=== PATIENT | male | born 1965 | race Two or more races ===

== ENCOUNTER 2019-02-03 13:01 | Emergency (ER) | payer MEDICARE, MEDICAID ==
[~2019-02-03] VITALS: Ht 157.5 cm; Wt 74.8 kg
[2019-02-03 14:16] LABS: Basophils # (auto) 0.1 uL; Basophils % (auto) 0.9 % (0.0-2.0); Eosinophils # (auto) 0.1 uL; Eosinophils % (auto) 1.7 % (0.0-7.0); Hematocrit 46.3 % (41.0-53.0); Hemoglobin 15.3 g/dL (13.5-17.5); Lymphocytes # (auto) 2.5 uL; Lymphocytes % (auto) 34.9 % (10.0-50.0); Mean Corpuscular Hemoglobin 28.3 pg (28.0-32.0); Mean Corpuscular Volume 85.9 fL (80.0-100.0); Monocytes # (auto) 0.6 uL; Monocytes % (auto) 7.9 % (0.0-12.0); Neutrophils # (auto) 3.8 uL; Neutrophils % (auto) 54.6 % (37.0-80.0); Nucleated Red Blood Cells % 0.1 %; Platelet Count (auto) 198 10^3/uL (140-450); Red Blood Cells 5.39 10^6/uL (4.5-5.90); Red Cell Distribution Width 14.2 % (11.8-14.3)
[2019-02-03 14:40] LABS: Potassium 4.4 mmol/L (3.5-5.1)
[2019-02-03 14:44] LABS: Calcium 8.9 mg/dL (8.5-10.1)
[2019-02-03 14:50] LABS: Bilirubin, Total 0.4 mg/dL (0.2-1.0); Total Protein 8.4 g/dL (6.4-8.2)
[2019-02-03 17:15] VITALS: BP 150/106
== END 2019-02-03 17:36 | disposition home or self-care (01) ==
LOC: ER 13:01
DX: R42 Dizziness and giddiness (principal); R51 Headache; M54.2 Cervicalgia; E11.9 Type 2 diabetes mellitus without complications; E78.5 Hyperlipidemia, unspecified; I25.2 Old myocardial infarction; Z98.61 Coronary angioplasty status; Z86.73 Personal history of transient ischemic attack (TIA), and cerebral infarction without residual deficits
CPT/HCPCS: 36415; 70450; 80053; 85025; 93005

== ENCOUNTER 2025-06-27 23:51 | Emergency (ER) | payer OTHER, MEDICAID ==
[~2025-06-27] VITALS: Ht 162.6 cm; Wt 63.6 kg
--- NOTE | 2025-06-28 02:01 | ED.PDOC ---
History of Present Illness HPI Comments HPI: This is a 59 year-old male who presents to the ED via wheelchair with a chief complaint of ETOH intoxification. Pt reports he was brought here by his after getting drunk at a restaurant. Pt is a poor historian. Pt has no further complaints or modifiers at this time. Pt otherwise denies chest pain, LOC, N/V/D, SOB, cough, fever, or chills. Patient denies any fall or trauma or injuries. Patient was at the restaurant with his . Past Medical History: CVA, DM, High Lipids, HTN, [place] Past Surgical History: PTCA Social History: Denies ETOH, smoking, and drug use. Medications: Unknown Allergies: None HPI: Poor Historian. REVIEW OF SYSTEMS: CONSTITUTIONAL: Denies acute: fever, diaphoresis, chills, HEAD: Denies acute: headache, photophobia Eyes: Denies acute: Double vision, vision loss, eye pain, eye discharge. EARS: Denies acute: tinnitus, hearing loss, ear discharge, ear pain, THROAT: Denies acute: sore throat, swelling, difficulty swallowing , pain with swallowing, change in voice. NECK: Denies acute: neck pain, neck swelling, stiff neck. HEART: Denies acute : chest pain, palpitations, LUNGS: Denies acute: SOB, wheezing, cough, hemoptysis ABDOMEN: Denies acute: abdominal pain, Nausea, Vomiting, diarrhea, melena , hematemesis, hematochezia SKIN: Denies acute: rash, redness, lesions, itchiness. EXTREMITIES: Denies acute: calf pain, numbness, tingling, weakness, denies pain in extremity. Denies acute: Low back pain. Neuro: Denies acute: focal neurological deficit, motor or sensory focal neurological deficit, tremors, seizure like activity, confusion, change in mental status, loss of bowel or bladder function, cauda equina like symptoms. : Denies acute: dysuria, hematuria, flank pain, increase in urinary frequency. PSYCH: Denies acute: hallucination, suicidal ideation, homicidal ideation. PHYSICAL EXAM: General: -----no---acute distress, awake and alert. Head: normocephalic, atraumatic. Neck: supple, trachea is midline, no swelling. Throat: Normal phonation. Eyes:, no erythema, no purulent discharge, no proptosis, no icterus. Heart: regular rate, regular rhythm, no significant murmur appreciated. Lungs: no apparent respiratory distress, Able to speak in full sentences. No wheezing, no rhonchi, no crackles. No stridors Clear to auscultation bilaterally. Abdomen: non tender to palpation, non distended, soft, no guarding, no rebound, + bowel sounds. Neuro: Awake, Alert, oriented to name, self, situation, follows commands GCS=15. Speech is normal. Skin: no petechia, no purpura, no cyanosis, non-pale, not jaundice. Lower extremities: --no - Pitting edema no deformity, no focal swelling, no calf TTP. Makes eye contact. moves all four extremities. Face: no apparent facial droop. ED COURSE: DISCLAIMER: This medical document was created using an electronic medical record system with voice recognition software and computerized dictation system. Although this document has been carefully reviewed, there might still be some phonetic and typographical errors. Occasional wrong-word or "sound-alike" substitutions may have occurred due to the inherent limitations of voice recognition software. These areas are purely typographical due to imperfections of the software programs and do not reflect any compromise in the patient's medical care. Please read the chart carefully and recognize, using context, where these substitutions have occurred. Chief Complaint: ETOH Time Seen by MD: 02:00 Reviewed Notes: Nurses Notes, Medications, Allergies Allergies: Coded Allergies: NO KNOWN ALLERGIES (Unverified , 02/03/19) Information Source: Patient Mode of Arrival: EMS Severity: Moderate Timing: Hours Duration: Since onset Prehospital treatment: None Associated signs and symptoms ETOH Intoxification Physical Exam General Appearance: Other (a) HEENT: Other (a) Neck: Other (a) Respiratory: Other (per hpi) Cardiovascular: Other (per hpi) Breast Exam: Deferred Gastrointestinal: Other (per hpi) Genitalia: Other (per hpi) Pelvic: Other (a) Rectal: Other (per hpi) Extremities: Other (per hpi) Musculoskeletal : Apperance: Normal Neurologic: Other (per hpi) Cerebellar Function: Other (a) Reflexes: Other (a) Skin: Other (per hpi) Lymphatic: Other (per hpi) Was a procedure done? Was a procedure done?: No Differential Dx Considerations may include: ETOH Intoxification X-Ray, Labs, Meds, VS Vital Signs Date Time Temp Pulse Resp B/P (MAP) Pulse Ox O2 Delivery O2 Flow Rate FiO2 06/28/25 04:22 79 18 98 Room Air* 0 21 06/28/25 04:22 98.1 79 18 109/68 (82) 98.1 06/28/25 00:00 97.6 107 18 149/83 96 97.6 Lab Test 06/28/25 01:46 Range/Units White Blood Count 7.2 4.4-10.8 10^3/uL Red Blood Count 4.54 4.5-5.90 10^6/uL Hemoglobin 14.2 13.5-17.5 g/dL Hematocrit 41.0 41.0-53.0 % Mean Corpuscular Volume 90.3 80.0-100.0 fL Mean Corpuscular Hemoglobin 31.3 28.0-32.0 pg Mean Corpuscular Hemoglobin Concent 34.6 32.0-36.0 g/dL Red Cell Distribution Width 14.3 11.8-14.3 % Platelet Count 153 140-450 10^3/uL Mean Platelet Volume 9.0 6.9-10.8 fL Neutrophils (%) (Auto) 63.5 37.0-80.0 % Lymphocytes (%) (Auto) 25.3 10.0-50.0 % Monocytes (%) (Auto) 7.5 0.0-12.0 % Eosinophils (%) (Auto) 2.9 0.0-7.0 % Basophils (%) (Auto) 0.8 0.0-2.0 % Neutrophils # (Auto) 4.6 1.6-8.6 10 ^3/uL Lymphocytes # (Auto) 1.8 0.4-5.4 10 ^3/uL Monocytes # (Auto) 0.5 0-1.3 10 ^3/uL Eosinophils # (Auto) 0.2 0-0.8 10 ^3/uL Basophils # (Auto) 0.1 0-0.2 10 ^3/uL Nucleated Red Blood Cells 0.1 % Sodium Level 140 136-145 mmol/L Potassium Level 3.4 L 3.5-5.1 mmol/L Chloride Level 107 98-107 mmol/L Carbon Dioxide Level 21 20-31 mmol/L Anion Gap 12 5-15 Blood Urea Nitrogen < 5 L 9-23 mg/dL Creatinine 0.79 0.700-1.30 mg/dL Glomerular Filtration Rate Calc 104 >90 mL/min BUN/Creatinine Ratio 6.3 L 10.0-20.0 Serum Glucose 163 H 74-106 mg/dL Lactic Acid Level 2.0 0.4-2.0 mmol/L Calcium Level 8.6 L 8.7-10.4 mg/dL Magnesium Level 2.0 1.6-2.6 mg/dL Total Bilirubin 0.3 0.2-1.0 mg/dL Aspartate Amino Transferase (AST) 98 H 13-40 U/L Alanine Aminotransferase (ALT) 38 7-40 U/L Alkaline Phosphatase 224 H 46-116 U/L Troponin I High Sensitivity 21 </=54 ng/L Total Protein 7.6 5.7-8.2 g/dL Albumin 4.4 3.2-4.8 g/dL Plasma/Serum Blood Alcohol 226.1 H <10 mg/dL Current Medications Medications (Trade) Dose Ordered Sig/Bessie Route Start Time Stop Time Status Last Admin Sodium Chloride 1,000 ml @ 1,000 mls/hr Q1H ONCE IV 06/28/25 03:15 06/28/25 04:14 DC 06/28/25 04:21 [place] [address] Ph: [phone] DIAGNOSTIC IMAGING Diagnostic Imaging Report : [id number] Signed PATIENT: PRITI PEARCE ACCT: [id number] UNIT: [id number] : 1965 LOC: ER ROOM / BED: / AGE / SEX: 59 / M ADM STATUS: REG ER SERVICE 6 ORDERING PHYSICIAN: LUCHO SEQUEIRA DO PROCEDURE(s): HWOCT - HEAD WITHOUT CONTRAST REASON: etoh ORDER NUMBER(s): [id number], ACCESSION NUMBER(s): [id number] EXAM: CT HEAD WITHOUT CONTRAST INDICATION: etoh TECHNIQUE: CT of the head without intravenous contrast. Radiation Dose : 1. Head: CT Dose: CTDI volume is 52.24 mGy. Dose-length product is 923.46 mGy*cm The dose indicators for CT are the volume Computed Tomography (CT) Dose Index (CTDIvol) and the Dose Length Product (DLP), and are measured in units of mGy and mGy-cm, respectively. These indicators are not patient dose, but values generated from the CT scanner acquisition factors. The report includes radiation exposure data for exposures received during this examination. COMPARISON: None FINDINGS: Postsurgical change status post left suboccipital craniotomy with subjacent left cerebellar hemispheric encephalomalacia and ex vacuo dilatation of the 4th ventricle. There is no evidence of acute intracranial hemorrhage, extra-axial collection, mass effect, midline shift, herniation or hydrocephalus. The ventricles, sulci and cisterns are otherwise age appropriate. The lockwood-white differentiation is intact. Patchy periventricular and subcortical white matter hypoattenuation is nonspecific but may be related to small vessel ischemic disease. Moderate multifocal hypoattenuation within the left frontoparietal deep white matter and denney radiata consistent with probable sequelae of chronic infarct. The visualized paranasal sinuses and mastoid air cells are clear. The surrounding soft tissues and osseous structures are otherwise unremarkable. IMPRESSION: 1. No acute intracranial abnormality. 2. Postsurgical change status post left suboccipital craniotomy with subjacent left cerebellar hemispheric encephalomalacia. 3. Probable chronic infarcts in the left frontoparietal deep white matter. Radiation optimization: All CT scans at this facility use at least one of these dose optimization techniques: automated exposure control mA and/or kV adjustment per patient size (includes targeted exams where dose is matched to clinical indication) or iterative reconstruction. ATED BY: DAMIEN GUZMAN MD DICTATED DATE/TIME: 06/28/25301 SIGNED BY: DAMIEN GUZMAN MD SIGNED DATE/TIME: 06/28/25301 CC: Time of 1ST Reevaluation: 02:24 Reevaluation 1ST: Unchanged Patient Education/Counseling: Diagnosis, Treatment Family Education/Counseling: No Family Present Medical Screening: No EMC Exist At This Time Comments MDM: patient presented with the above HPI.--alcohol intoxication----workup was initiated. patient was found with the above mentioned diagnosis. the following medications were ordered: please refer to order lists of meds and tests obtained by myself Dr. Sequeira. Patient ED course and VS have been stabilized. Patient has been reassessed in the ED and remained in a stable condition. Pertinent incidental findings were discussed with the patient and/or family. Patient/family voices understanding and is agreeable with plan. Patient has been observed in the ED adequate length of time to insure improvement/stability. Escalation of care considered: Consideration of escalation to observation or admission Patient was given fluids. Repeat alcohol level were ordered. Patient is awaiting his family to come pick him up. No history of fall or trauma or injury. Patient was DISCHARGED home in a stable condition. All the reports of any imaging studies that were ordered by myself were reviewed by myself. SEPSIS Sepsis Screen Date sepsis recognized/suspect: Jun 27, 2025 Time Sepsis recognized/suspect: 2354 Recent Procedure: No On Antibiotic Therapy: No Respiratory Rate >20: No Heart Rate >90: Yes Temp<36 C (96.8 F) or >38.3 C: No SBP <90 or MAP <65 mmHG: No New Acute Mental Status Change: No Is the patient on CPAP, BIPAP,: No Physician Orders Director Product (06/28/25 ) Drug Screen (06/28/25 01:27) Electrocardigram (06/28/25 01:27) Head Without Contrast (06/28/25 01:27) Blood Alcohol (06/28/25 05:51) Vital Signs Date Time Temp Pulse Resp B/P (MAP) Pulse Ox O2 Delivery O2 Flow Rate FiO2 06/28/25 04:22 79 18 98 Room Air* 0 21 06/28/25 04:22 98.1 79 18 109/68 (82) 98.1 06/28/25 00:00 97.6 107 18 149/83 96 97.6 Laboratory Tests Test 06/28/25 01:46 Lactic Acid Level 2.0 mmol/L (0.4-2.0) White Blood Count 7.2 10^3/uL (4.4-10.8) Medications Medications Dose Ordered Sig/Bessie Route Start Time Stop Time Status Last Admin Dose Admin Sodium Chloride 1,000 ml @ 1,000 mls/hr Q1H ONCE IV 06/28/25 03:15 06/28/25 04:14 DC 06/28/25 04:21 Departure 1 Departure Time of Disposition: 05:52 Impression: Primary Impression: Alcohol abuse Disposition: 01 HOME / SELF CARE / HOMELESS Condition: Stable Additional Instructions: Additional instructions: Please read all instructions provided in this packet carefully. You MUST follow-up with your primary care/family doctor in 1 to 2 days. If you are unable to see your primary care/family doctor, please return to our emergency room for re-assessment and re-evaluation in 1 to 2 days. Return to the emergency room here in our facility or to the nearest ER [facility] if your symptoms change or worsen. CONSULTATIONS: you MUST Follow-up for consultation as soon as possible with: -urology and cardiology in 1-2 days. Please call for appointment. You MUST call the consultants office yourself to make an appointment. You may need to arrange that through your insurance and/or your primary/family doctor. If you are unable to see the procurement consultant in 1 to 2 days, you must return to our emergency room (or any other ER of your choice) for re-assessment and re- evaluation. Adequate fluid hydration. Although you have been discharged from the Emergency Department, this does not mean that you have a "clean bill of health". No definitive diagnosis for your symptoms has been made today. It is possible that you are in the process of developing a serious illness. This is why you must return to the ED without fail if any new or worsening symptoms develop. Seek help regarding your alcohol abuse. Patient must be discharged in the care of his family members. He said he called his family members to pick him up. Below is a copy of your radiological report for follow up: [place] [address] Ph: [phone] DIAGNOSTIC IMAGING Diagnostic Imaging Report : [id number] Signed PATIENT: PRITI PEARCE ACCT: [id number] UNIT: [id number] : 1965 LOC: ER ROOM / BED: / AGE / SEX: 59 / M ADM STATUS: REG ER SERVICE 0127 ORDERING PHYSICIAN: LUCHO SEQUEIRA DO PROCEDURE(s): HWOCT - HEAD WITHOUT CONTRAST REASON: etoh ORDER NUMBER(s): [id number], ACCESSION NUMBER(s): [id number] EXAM: CT HEAD WITHOUT CONTRAST INDICATION: etoh TECHNIQUE: CT of the head without intravenous contrast. Radiation Dose : 1. Head: CT Dose: CTDI volume is 52.24 mGy. Dose-length product is 923.46 mGy*cm The dose indicators for CT are the volume Computed Tomography (CT) Dose Index (CTDIvol) and the Dose Length Product (DLP), and are measured in units of mGy and mGy-cm, respectively. These indicators are not patient dose, but values generated from the CT scanner acquisition factors. The report includes radiation exposure data for exposures received during this examination. COMPARISON: None FINDINGS: Postsurgical change status post left suboccipital craniotomy with subjacent left cerebellar hemispheric encephalomalacia and ex vacuo dilatation of the 4th ventricle. There is no evidence of acute intracranial hemorrhage, extra-axial collection, mass effect, midline shift, herniation or hydrocephalus. The ventricles, sulci and cisterns are otherwise age appropriate. The lockwood-white differentiation is intact. Patchy periventricular and subcortical white matter hypoattenuation is nonspecific but may be related to small vessel ischemic disease. Moderate multifocal hypoattenuation within the left frontoparietal deep white matter and denney radiata consistent with probable sequelae of chronic infarct. The visualized paranasal sinuses and mastoid air cells are clear. The surrounding soft tissues and osseous structures are otherwise unremarkable. IMPRESSION: 1. No acute intracranial abnormality. 2. Postsurgical change status post left suboccipital craniotomy with subjacent left cerebellar hemispheric encephalomalacia. 3. Probable chronic infarcts in the left frontoparietal deep white matter. Radiation optimization: All CT scans at this facility use at least one of these dose optimization techniques: automated exposure control mA and/or kV adjustment per patient size (includes targeted exams where dose is matched to clinical indication) or iterative reconstruction. ATED BY: DAMIEN GUZMAN MD DICTATED DATE/TIME: 06/28/25301 SIGNED BY: DAMIEN GUZMAN MD SIGNED DATE/TIME: 06/28/25301 CC: Discharged With: Self, Spouse Critical Care Note Critical Care Time?: No I personally scribed for LUCHO SEQUEIRA DO ([email or web address]) on 06/28/25 at 02:01. Electronically submitted by Marianela Mcdaniel ([facility]). I personally scribed for HUALUCHO Vidal DO (DVFARMI) on 06/28/25 at 02:04. Electronically submitted by Marianela Mcdaniel ([facility]). I personally scribed for LUCHO SEQUEIRA Vidal DO (DVFARMI) on 06/28/25 at 03:12. Electronically submitted by Marianela Mcdaniel ([facility]). I personally scribed for HUALUCHO Vidal DO (DVFARMI) on 06/28/25 at 03:38. Electronically submitted by Marianela Mcdaniel ([email or web address]). I personally scribed for HUALUCHO Vidal DO (DVFARMI) on 06/28/25 at 03:42. Electronically submitted by Marianela Mcdaniel ([email or web address]). I personally scribed for HUALUCHO Vidal DO (DVFARMI) on 06/28/25 at 03:49. Electronically submitted by Marianela Mcdaniel ([facility]). HUALUCHO HOANG DO Jun 28, 2025 02:01
[2025-06-28 02:03] LABS: Hematocrit 41.0 % (41.0-53.0); Hemoglobin 14.2 g/dL (13.5-17.5); Mean Corpuscular Hemoglobin 31.3 pg (28.0-32.0); Mean Corpuscular Volume 90.3 fL (80.0-100.0); Nucleated Red Blood Cells % 0.1 %
[2025-06-28 02:24] LABS: Alanine Aminotransferase 38 U/L (7-40); Albumin 4.4 g/dL (3.2-4.8); Anion Gap 12 (5-15); Carbon Dioxide 21 mmol/L (20-31); Magnesium 2.0 mg/dL (1.6-2.6); Sodium 140 mmol/L (136-145); Total Protein 7.6 g/dL (5.7-8.2)
[2025-06-28 02:30] LABS: Alkaline Phosphatase 224 U/L (46-116); BUN/Creatinine Ratio 6.3 (10.0-20.0); Bilirubin, Total 0.3 mg/dL (0.2-1.0); Blood Urea Nitrogen < 5 mg/dL (9-23); Calcium 8.6 mg/dL (8.7-10.4); Chloride 107 mmol/L (98-107); Glucose 163 mg/dL (74-106); Potassium 3.4 mmol/L (3.5-5.1)
--- NOTE | 2025-06-28 03:05 | DVH ---
EXAM: CT HEAD WITHOUT CONTRAST INDICATION: etoh TECHNIQUE: CT of the head without intravenous contrast. Radiation Dose : 1. Head: CT Dose: CTDI volume is 52.24 mGy. Dose-length product is 923.46 mGy*cm The dose indicators for CT are the volume Computed Tomography (CT) Dose Index (CTDIvol) and the Dose Length Product (DLP), and are measured in units of mGy and mGy-cm, respectively. These indicators are not patient dose, but values generated from the CT scanner acquisition factors. The report includes radiation exposure data for exposures received during this examination. COMPARISON: None FINDINGS: Postsurgical change status post left suboccipital craniotomy with subjacent left cerebellar hemispher ic encephalomalacia and ex vacuo dilatation of the 4th ventricle. There is no evidence of acute intracranial hemorrhage, extra-axial collection, mass effect, midline s hift, herniation or hydrocephalus. The ventricles, sulci and cisterns are otherwise age appropriate. The lockwood-white differentiation is intact. Patchy periventricular and subcortical white matter hypoattenuation is nonspecific but may be related to small vessel ischemic disease. Moderate multifocal hypoattenuation within the left frontoparieta l deep white matter and denney radiata consistent with probable sequelae of chronic infarct. The visualized paranasal sinuses and mastoid air cells are clear. The surrounding soft tissues and osseous structures are otherwise unremarkable. IMPRESSION: 1. No acute intracranial abnormality. 2. Postsurgical change status post left suboccipital craniotomy with subjacent left cerebellar hemisp heric encephalomalacia. 3. Probable chronic infarcts in the left frontoparietal deep white matter. Radiation optimization: All CT scans at this facility use at least one of these dose optimization carmen hniques: automated exposure control mA and/or kV adjustment per patient size (includes targeted exam s where dose is matched to clinical indication) or iterative reconstruction.
[2025-06-28] MEDS: SODIUM CHLORIDE 0.9% 1,000 ML IV ONE (04:21)
[2025-06-28 04:22] VITALS: PULSE 79; RESP 18; O2SAT 98
[2025-06-28 06:17] VITALS: BP 124/76; PULSE 85; RESP 18; TEMP 97.6; O2SAT 94
== END 2025-06-28 06:20 | disposition home or self-care (01) ==
LOC: EDBD 23:51 → ER 23:51 → EDUNIT# 23:51 → ER 06-28 06:20
DX: F10.129 Alcohol abuse with intoxication, unspecified (principal); G93.89 Other specified disorders of brain; E11.9 Type 2 diabetes mellitus without complications; I10 Essential (primary) hypertension; E78.5 Hyperlipidemia, unspecified; I25.2 Old myocardial infarction; Z86.73 Personal history of transient ischemic attack (TIA), and cerebral infarction without residual deficits; Y90.7 Blood alcohol level of 200-239 mg/100 ml
CPT/HCPCS: 36415; 70450; 80053; 80320; 83605; 83735; 84484; 85025; 96360; 96361; 99284; J7030